=== PATIENT | male | born 1975 | race Caucasian/White ===

== ENCOUNTER 2018-09-22 18:39 | Emergency (ER) | payer SELFPAY ==
[~2018-09-22] VITALS: Ht 177.8 cm; Wt 85.0 kg
[2018-09-22 19:37] VITALS: Ht 177.8 cm; Wt 85.0 kg
[2018-09-22] MEDS ORDERED: VIBRAMYCIN 100100 MG PO (22:10)
[2018-09-22] MEDS ORDERED: VOLTAREN75 MG PO (22:10)
[2018-09-22 23:18] VITALS: BP 107/44
== END 2018-09-22 23:18 | disposition home or self-care (01) ==
LOC: D.ER 18:39
DX: L03.317 Cellulitis of buttock (principal)